=== PATIENT | female | born 1970 | race Caucasian/White ===

== ENCOUNTER 2017-01-16 07:09 | Emergency (ER) | payer BC, OTHER ==
[~2017-01-16] VITALS: Ht 162.6 cm; Wt 89.0 kg
[~2017-01-16 07:09] MED LIST: HYDR-3011 PO; KETO120S2 TOP; TERB250T46 PO
[2017-01-16 07:10] VITALS: Ht 162.6 cm; Wt 89.0 kg
[2017-01-16] MEDS ORDERED: DEXAMETHASONE 4 MG TAB PO ONE (08:00)
--- NOTE | 2017-01-16 08:00 | ERD ---
ER Documentation Chief Complaint Date/Time DATE: 01/16/17 TIME: 07:56 Chief Complaint rt side throat pain x 4 days HPI Patient is a 46-year-old female who presents with gradual onset, constant, moderate to severe right sided throat pain for 4 days. She denies fever. She denies trauma. She denies difficulty breathing, difficulty swallowing. She feels anxious that her throat pain is due to cancer. She states that she feels pressure in her right ear that is worse when she swallows. She denies cough. ROS All systems reviewed and are negative except as per history of present illness. Medications Home Meds Active Scripts Ketoconazole* (Ketoconazole*) 2% - 120 Ml Shampoo, 1 APPLIC TOP DAILY, #1 EA WASH HAIR/SCALP AND RINSE OFF Prov:YASEMIN ARCINIEGA NP 04/08/15 Hydroxyzine Hcl* (Hydroxyzine Hcl*) 25 Mg Tablet, 25 MG PO Q8H Y for ITCHING, # 30 TAB Prov:YASEMIN ARCINIEGA NP 04/08/15 Terbinafine* (Lamisil*) 250 Mg Tablet, 250 MG PO DAILY for 28 Days, TAB Prov:YASEMIN ARCINIEGA [employer]COHOLISM WORKER 04/08/15 Allergies Allergies: Coded Allergies: No Known Allergy (Unverified , 04/08/15) PMhx/Soc Past medical history: Denies Past surgical history: Denies Social history: Smokes a pack and a half of cigarettes per day, denies alcohol. Remote history of cocaine use, no current drug use. Medical and Surgical Hx: pt denies Medical Hx, pt denies Surgical Hx Smoking Status: Never smoker FmHx Family History: No coronary disease, No diabetes Physical Exam Vitals Vital Signs Date Time Temp Pulse Resp B/P Pulse Ox O2 Delivery O2 Flow Rate FiO2 01/16/17 07:10 97.8 88 18 119/73 97 Physical Exam Const: Alert, no acute distress Head: Atraumatic Eyes: Normal Conjunctiva, no pallor, no icterus ENT: Normal External Ears, Nose and Mouth. Very mild enlargement of right tonsil, no exudate. Normal tympanic membrane, no erythema or bulge. Neck: Full range of motion..~ No meningismus. No cervical adenopathy Resp: Clear to auscultation bilaterally, no wheezes, no rales Cardio: Regular rate and rhythm, no murmurs Abd: Soft, non tender, non distended. Skin: No petechiae or rashes Ext: No cyanosis, or edema Neur: Awake and alert, cranial nerves II through XII intact bilaterally, strength and sensation full in 4 extremities Psych: Appears anxious Procedures/MDM Patient is a 46-year-old female who presents with 4 days of right-sided throat pain. On exam she has a benign appearance of the throat with mild Bishop enlarged tonsil. There is no significant erythema or exudate. There is no significant adenopathy. The patient is very anxious that her symptoms are due to cancer. There is nothing on her exam or history that is concerning and her symptoms are likely due to infection. She does have some nasal mucus. Given the appearance I suspect a viral etiology. I will give her a dose of Decadron for comfort, advised her to take ibuprofen and eat soothing foods. The patient does have a significant smoking history. I spoke with her extensively for approximately 5 minutes about strategies for smoking cessation. I have advised her to follow- up with her PMD if her throat symptoms do not resolve within 1 week. Departure Diagnosis: Primary Impression: Tonsillitis Condition: RORY Polo MD Jan 16, 2017 08:00
== END 2017-01-16 08:16 | disposition home or self-care (01) ==
LOC: FTE 07:09
DX: J03.90 Acute tonsillitis, unspecified (principal); F17.210 Nicotine dependence, cigarettes, uncomplicated
CPT/HCPCS: Z7502; Z7610; 99283

== ENCOUNTER 2018-10-04 15:57 | Emergency (ER) | payer OTHER ==
[~2018-10-04] VITALS: Ht 165.1 cm; Wt 92.0 kg
[~2018-10-04 15:57] MED LIST changes: -HYDR-3011 PO; +HYDR-843 PO; -KETO120S2 TOP; +KETO120S3 TOP
[2018-10-04 16:09] VITALS: Ht 165.1 cm; Wt 92.0 kg
[2018-10-04] MEDS ORDERED: SOD CHLORIDE 0.9% 1,000 ML IV STA (19:01)
[2018-10-04] MEDS ORDERED: METOCLOPRAMIDE 10 MG INJ IV STA (19:01)
[2018-10-04] MEDS ORDERED: DIPHENHYDRAMINE 50 MG INJ IV STA (19:01)
[2018-10-04] MEDS ORDERED: KETOROLAC 30 MG INJ IV STA (19:01)
[2018-10-04] MEDS ORDERED: ACET500C5 PO (20:10)
--- NOTE | 2018-10-04 20:15 | ERD ---
ER Documentation Chief Complaint Chief Complaint RIGHT SIDED MARMOLEJO SINCE 0400 HPI This is a 48-year-old female denies significant past medical history presents ED with complaints of right-sided headache that started at 4 AM this morning. Patient describes the headache at first is a sharp shooting pain. Patient states that the headache has dissipated and it is now just the feeling of a hangover. Patient states that she did not drink alcohol last night. Dizziness, lightheadedness, tingling, numbness, lack of sensation, weakness, nausea, vomiting and all other symptoms. No known drug allergies. ROS All systems reviewed and are negative except as per history of present illness. Medications Home Meds Active Scripts Acetaminophen* (Tylophen*) 500 Mg Capsule, 1 CAP PO Q6H PRN for PAIN AND OR ELEVATED TEMP, #20 CAP Prov:MARIANA ALLEN PA-C 10/04/18 Ketoconazole* (Ketoconazole*) 2% - 120 Ml Shampoo, 1 APPLIC TOP DAILY, #1 EA WASH HAIR/SCALP AND RINSE OFF Prov:YASEMIN ARCINIEGA NP 04/08/15 Hydroxyzine Hcl* (Hydroxyzine Hcl*) 25 Mg Tablet, 25 MG PO Q8H PRN for ITCHING, #30 TAB Prov:YASEMIN ARCINIEGA NP 04/08/15 Terbinafine* (Lamisil*) 250 Mg Tablet, 250 MG PO DAILY for 28 Days, TAB Prov:YASEMIN ARCINIEGA NP 04/08/15 Allergies Allergies: Coded Allergies: No Known Allergy (Unverified , 01/16/17) PMhx/Soc History of Surgery: No Anesthesia Reaction: No Hx Neurological Disorder: No Hx Respiratory Disorders: No Hx Cardiac Disorders: No Hx Psychiatric Problems: No Hx Miscellaneous Medical Probl: Yes (PSORIASIS) Hx Alcohol Use: No Hx Substance Use: No Hx Tobacco Use: No Smoking Status: Never smoker Physical Exam Vitals Vital Signs Date Temp Pulse Resp B/P (MAP) Pulse Ox O2 O2 Flow FiO2 Time Delivery Rate 10/04/18 98.9 104 18 118/92 96 16:09 (101) Physical Exam Physical Exam Vitals signs: Reviewed by me. General: Well developed, well nourished, in no acute distress. Patient is awake and alert. Head: Normocephalic, atraumatic. Eyes: Normal conjunctiva, Pupils PERRLA, EOM intact grossly ENT: Pharynx is clear, Moist mucous membranes, external ears, nose and mouth normal Neck: Supple, no masses, lymphadenopathy or JVD Respiratory: Clear to auscultation bilaterally with no wheezing, rhonchi, rales, no distress Cardiovascular: RRR, no murmurs, rubs, or gallops MSK: No edema, no unilateral swelling, 5/5 strength Back: No midline tenderness. No flank tenderness Neurologic: Alert and oriented, moving all extremities, normal speech, no focal weakness, no cerebellar signs. Normal mentation Cranial nerves II through XII intact bilaterally Neuro: M/S: Alert and oriented Face: EOMI, face and pharynx with normal sensation and function Motor: Normal strength throughout Sensation: Normal sensation throughout Speech: Normal Cerebel: Normal coordination Normal gait Normal finger to nose DTR: 2+ and symmetric upper/lower extremities Skin: warm and dry, No rash Psych: Normal mood Result Diagram: 10/04/18191410/04/181914 Results 24 hrs Laboratory Tests Test 10/04/18 19:11 10/04/18 19:15 Urine Color YELLOW Urine Clarity CLOUDY Urine pH 5.0 Urine Specific Bee 1.023 Urine Ketones NEGATIVE mg/dL Urine Nitrite NEGATIVE mg/dL Urine Bilirubin NEGATIVE mg/dL Urine Urobilinogen NEGATIVE mg/dL Urine Leukocyte Esterase TRACE Debo/ul Urine Microscopic RBC 5 /HPF Urine Microscopic WBC 2 /HPF Urine Squamous Epithelial Cells MODERATE /HPF Urine Bacteria FEW /HPF Urine Mucus MANY /HPF Urine Hemoglobin NEGATIVE mg/dL Urine Glucose NEGATIVE mg/dL Urine Total Protein NEGATIVE mg/dl White Blood Count 9.3 10^3/ul Red Blood Count 4.87 10^6/ul Hemoglobin 11.5 g/dl Hematocrit 37.4 % Mean Corpuscular Volume 76.8 fl Mean Corpuscular Hemoglobin 23.6 pg Mean Corpuscular Hemoglobin Concent 30.7 g/dl Red Cell Distribution Width 17.0 % Platelet Count 286 10^3/UL Mean Platelet Volume 10.1 fl Immature Granulocytes % 0.300 % Neutrophils % 65.2 % Lymphocytes % 24.2 % Monocytes % 8.0 % Eosinophils % 1.9 % Basophils % 0.4 % Nucleated Red Blood Cells % 0.0 /100WBC Immature Granulocytes # 0.030 10^3/ul Neutrophils # 6.0 10^3/ul Lymphocytes # 2.2 10^3/ul Monocytes # 0.7 10^3/ul Eosinophils # 0.2 10^3/ul Basophils # 0.0 10^3/ul Nucleated Red Blood Cells # 0.0 10^3/ul Prothrombin Time 12.5 Sec Prothrombin Time Ratio 1.0 INR International Normalized Ratio 0.92 Activated Partial Thromboplast Time 24.3 Sec Sodium Level 140 mmol/L Potassium Level 3.8 mmol/L Chloride Level 105 mmol/L Carbon Dioxide Level 25 mmol/L Anion Gap 10 Blood Urea Nitrogen 10 mg/dl Creatinine 0.66 mg/dl Est Glomerular Filtrat Rate mL/min > 60 mL/min Glucose Level 114 mg/dl Calcium Level 9.3 mg/dl Current Medications Medications Dose Sig/Hipolito Start Time Status Last (Trade) Ordered Route PRN Stop Time Admin Dose Reason Admin Sodium 1,000 ml @ Q1H STAT 10/04/18 DC 10/04/18 Chloride 1,000 mls/hr IV 19:01 19:20 10/04/18 20:00 10 mg ONCE STAT 10/04/18 DC 10/04/18 Metoclopramid IV 19:01 19:20 e HCl 10/04/18 19:04 (Reglan) 25 mg ONCE STAT 10/04/18 DC 10/04/18 Diphenhydrami IV 19:01 19:21 ne HCl 10/04/18 19:04 (Benadryl) Ketorolac 30 mg ONCE STAT 10/04/18 DC 10/04/18 Tromethamine IV 19:01 19:20 (Toradol) 10/04/18 19:04 Procedures/MDM EKG, MONITORS, & DIAGNOSTIC IMAGING: [place] [id number] Radiology Main Line: [phone] DIAGNOSTIC IMAGING REPORT Patient: MARCELLO WOOTEN : 1970 Age: 48 Sex: F MR #: [id number] DOS: 10/04/18 1901 Ordering MD: MARIANA ALLEN PA-C Location: [facility] Room/Bed: PROCEDURE: CT Brain without contrast. CLINICAL INDICATION: Headache TECHNIQUE: A CT of the brain was performed on a [employer] Discovery 64-slice CT scanner utilizing axial imaging from the skull base through the vertex without IV contrast. Multiplanar reformatted images were made. Images were reviewed on a PACS workstation. The CTDIvol is 37.0 mGy and the DLP is 238 mGycm. DICOM images are available. One or more of the following dose reduction techniques were utilized: 1.) Automated exposure control 2.) Adjustment of the mA +/- kV according to patient's size 3.) Use of iterative reconstruction technique. COMPARISON: None FINDINGS: There is no intracranial hemorrhage, mass effect, or midline shift. No extra- axial fluid collection is seen. The ventricles and sulci are normal in size and configuration. The density of the brain is normal, and the cerrato white matter differentiation appears well-preserved. The visualized paranasal sinuses and osseous structures are grossly unremarkable. IMPRESSION: 1. No evidence of acute intracranial pathology. Physician Bernadette Date Time Electronically viewed and signed by Allen Salas Physician on 10/04/2018 20:05 ML/ CC: MARIANA ALLEN PA-C [id number] Interpretation text CBC shows no evidence of hemorrhage or infection Chemistry shows no evidence of significant electrolyte abnormalities or renal insufficiency Coagulation study showed no concerning coagulopathy Lipase shows no evidence of acute pancreatitis Urinalysis shows moderate epithelial cells, 2 WBC, 5 RBC, trace leukocyte esterase ER COURSE: The patient was given IV normal saline, Benadryl, Reglan and Zofran The medication was well tolerated and the patient reports improvement in symptoms. The patient was stable throughout ED course. I kept the patient and/or family informed of laboratory and diagnostic imaging results throughout the emergency room course. The patient was promptly evaluated and a treatment plan was devised based on H&P and other data. This plan was discussed with the patient who agreed and had no further questions or concerns prior to discharge. MEDICAL DECISION MAKIN-year-old female presents ED with headache since this morning. Patient was given medication in the emergency department reports resolution of headache. The patient's headache is unlikely related to serious etiology. The patient does not exhibit any clinical signs or symptoms, and has no risk factors to suggest headache etiology such as subarachnoid hemorrhage, acute vertebral or carotid dissection, intracranial mass, epidural, subdural hematoma, dural venous sinus thrombosis, giant cell arteritis, CVA, encephalitis, meningitis, or pseudotumor cerebri. Patient's vitals are stable and patient can be managed with close outpatient follow-up. Patient was advised to follow-up with her primary care in the next 48 hours. Return to ED with any worsening symptoms. DISPOSITION PLAN: We discussed follow up with the patient's primary care doctor within 24 to 48 hours. Patient counseled regarding my diagnostic impression and care plan. Prior to discharge all questions answered. Pt agrees with treatment plan and understands strict return precautions. Precautionary instructions provided including instructions to return to the ER if not improving or for any worsening or changing symptoms or concerns. SPECIALIST FOLLOW UP RECOMMENDED: None Patient has been advised to follow up with primary care in 1-2 days. Disclaimer: Inadvertent spelling and grammatical errors are likely due to EHR/dictation software use and do not reflect on the overall quality of patient care. Also, please note that the electronic time recorded on this note does not necessarily reflect the actual time of the patient encounter. Departure Diagnosis: Primary Impression: Headache Headache type: unspecified Headache chronicity pattern: acute headache Intractability: not intractable Qualified Codes: R51 - Headache Condition: Stable Patient Instructions: Self-Care for Headaches, Headache, Unspecified Referrals: COMMUNITY CLINICS YOU HAVE RECEIVED A MEDICAL SCREENING EXAM AND THE RESULTS INDICATE THAT YOU DO NOT HAVE A CONDITION THAT REQUIRES URGENT TREATMENT IN THE EMERGENCY DEPARTMENT. FURTHER EVALUATION AND TREATMENT OF YOUR CONDITION CAN WAIT UNTIL YOU ARE SEEN IN YOUR DOCTORS OFFICE WITHIN THE NEXT 1-2 DAYS. IT IS YOUR RESPONSIBILITY TO MAKE AN APPOINTMENT FOR FOLOW-UP CARE. IF YOU HAVE A PRIMARY DOCTOR --you should call your primary doctor and schedule an appointment IF YOU DO NOT HAVE A PRIMARY DOCTOR YOU CAN CALL OUR PHYSICIAN REFERRAL HOTLINE AT IF YOU CAN NOT AFFORD TO SEE A PHYSICIAN YOU CAN CHOSE FROM THE FOLLOWING [facility] [address] [facility]. [facility] [address] [facility] [address] [facility] [address] [facility] [address] [facility]. [facility] [address] Additional Instructions: Patient advised to return to the ED immediately for new or worsening symptoms. Patient advised to follow up with primary care provider in the next 24-48 hours. Patient verbalized understanding and agrees with treatment plan and course of action. If patient has no primary care they may follow up with one of the community clinics listed on the following page or one of the options listed below [facility] + [facility] [address] [place] [address] or [facility] [address] [place] [address] or [facility] [address] [place] [address] MARIANA ALLEN PA-C Oct 04, 2018 20:15
[2018-10-04 20:23] VITALS: BP 113/77; PULSE 96; RESP 18
== END 2018-10-04 20:25 | disposition home or self-care (01) ==
LOC: FTE 15:57
DX: R51 Headache (principal)
CPT/HCPCS: 36415; 70450; 80048; 81001; 81025; 85025; 85610; 85730; 96361; 96374; 96375; J1200; J1885; J2765; J7030; Z7502